=== PATIENT | female | born 1965 | race American Indian/Alaskan Native ===

== ENCOUNTER 2017-01-17 07:35 | Day surgery (SDC) | payer MEDICAID ==
[2017-01-06 12:46] VITALS: BMI 45.1
[2017-01-17 08:09] VITALS: TEMP 98.1; O2SAT 98
[2017-01-17] MEDS ORDERED: Propofol 10 mg/ml Inj (20 ML) ONE ×2 (08:42→10:06)
[2017-01-17] MEDS ORDERED: Simethicone 40 mg/0.6 ml Liquid (30 ml) ONE (10:02)
[2017-01-17] MEDS ORDERED: Sodium Chloride 0.9% 1,000 ML IV SCH (10:30)
[2017-01-17 10:46] VITALS: RESP 16
[2017-01-17 14:11] VITALS: BP 179/87; PULSE 61
== END 2017-01-17 12:22 | disposition home or self-care (01) ==
LOC: ENDO 07:35
PROVIDERS: ATTEND Internal Medicine
DX: Z12.11 Encounter for screening for malignant neoplasm of colon (principal); K64.8 Other hemorrhoids; I10 Essential (primary) hypertension
CPT/HCPCS: 36415; 45378; 84702; J2704; J7040